=== PATIENT | male | born 1975 | race Asian ===

== ENCOUNTER 2020-06-04 20:25 | Emergency (ER) | payer OTHER ==
[~2020-06-04] VITALS: Ht 162.6 cm; Wt 62.6 kg
[2020-06-04 20:29] VITALS: BP_SYST 132
--- NOTE | 2020-06-04 21:59 | NUR ---
Patient to ER HALLWAY BED for evaluation. Side rails up. Report given to FLOYD LEY
--- NOTE | 2020-06-04 22:02 | NUR ---
ER at bedside examining patient.
--- NOTE | 2020-06-04 22:10 | NUR ---
Pt BIBA c/o R hand pinky laceration x today. Pt states cutting his finger w/ an electric saw. No active bleeding. Denies allergies, CP, SOB, fever.
--- NOTE | 2020-06-04 22:58 | NUR ---
VSS no s/s of acute distress Resting on gurney rails up.
[2020-06-04] MEDS ORDERED: DIPH-TET-PERTUS Vaccine 0.5 ML VIAL (ADACEL) I.M. ONE (23:00)
[2020-06-04] MEDS ORDERED: BACITRACIN 1 GM OINT TP ONE (23:34)
[2020-06-04 23:55] VITALS: BP_SYST 132
--- NOTE | 2020-06-04 23:55 | NUR ---
Patient given written and verbal discharge instructions and verbalizes understanding. ER MD discussed with patient the results and treatment provided. Patient in stable condition. ID arm band removed. Patient educated on pain management and to follow up with PMD. Pain Scale 0/10 Opportunity for questions provided and answered.
== END 2020-06-04 23:55 | disposition home or self-care (01) ==
LOC: SED 20:25
DX: S61.216A Laceration without foreign body of right little finger without damage to nail, initial encounter (principal); W29.8XXA Contact with other powered hand tools and household machinery, initial encounter; Y93.89 Activity, other specified; Y92.89 Other specified places as the place of occurrence of the external cause; Y99.8 Other external cause status
CPT/HCPCS: 73140-TC; 90715; 99283